=== PATIENT | female | born 1960 | race African-American/Black ===

== ENCOUNTER 2018-06-26 07:00 | Day surgery (SDC) | payer OTHER ==
[2018-06-25 12:17] VITALS: BMI 31.1
[2018-06-26] MEDS ORDERED: oxyCODONE HCL 5 MG TABLET PO PRN ×2 (08:24→09:39)
[2018-06-26] MEDS ORDERED: ONDANSETRON 4 MG/2 ML VIAL IVPUSH PRN ×2 (08:24→09:39)
[2018-06-26] MEDS ORDERED: LACTATED RINGERS SOLUTION 1,000 ML IV SCH (08:30)
[2018-06-26] MEDS ORDERED: MIDAZOLAM HCL 2 MG/2 ML SINGLE DOSE VIAL ONE (09:23)
[2018-06-26] MEDS ORDERED: DEXAMETHASONE SOD PHOSPHATE 4 MG/1 ML VIAL ONE (09:24)
[2018-06-26] MEDS ORDERED: LIDOCAINE HCL/PF 2% SDV 5ML VIAL ONE (09:24)
[2018-06-26] MEDS ORDERED: IBUPROFEN 800 MG/8 ML IJ IVPB PRN (09:39)
[2018-06-26] MEDS ORDERED: IBUPROFEN 600 MG TABLET (FP) PO PRN (09:39)
--- NOTE | 2018-06-26 09:43 | HP ---
History & Physical Update - History History: No Change (Consent signed and witnessed All questions answered) - Physical Physical: No Change - Assessment Assessment: No Change - Plan Plan: No Change
--- NOTE | 2018-06-26 09:43 | OP ---
Operative Note - Note: Operative Date: 06/26/18 Pre-Operative Diagnosis: 57yo P2 with Postmenopausal bleeding, Thick Endometrium on Tamoxifen Operation: Hysteroscopy, Sonographicaly guided myomectomy and polypectomy, scar tissue resection Findings: 1. Long cervix with scared internal os 2. Fibroid 3. Polypoid tissue in the endometrial cavity Post-Operative Diagnosis: Same as Pre-op Surgeon: Lenore Shirley Anesthesiologist/BOX CLOSING MACHINE OPERATOR: [facility] Anesthesia: MAC Specimens Removed: 1. Fibrous and polypoid tissue Estimated Blood Loss (mls): 0 Drains & Tubes with Location: Fluid defficit - 50cc Drains, Volume Out (mls): 50 Fluid Volume Replaced (mls): 700 Operative Report Dictated: Yes
[2018-06-26] MEDS ORDERED: ELECTROLYTE-148 SOLN 1,000 ML IV SCH (09:45)
[2018-06-26] MEDS ORDERED: ePHEDrine SULFATE 50 MG/1 ML AMPULE ONE (10:08)
[2018-06-26] MEDS ORDERED: KETOROLAC TROMETHAMINE 30 MG/1 ML VIAL ONE (10:36)
[2018-06-26] MEDS ORDERED: oxyCODONE HCL 5 MG TABLET ONE (11:56)
[2018-06-26 12:13] VITALS: TEMP 97.7
[2018-06-26 13:22] VITALS: BP 134/76; PULSE 90
--- NOTE | 2018-06-27 08:20 | OP ---
DATE OF OPERATION: 06/26/2018 PREOPERATIVE DIAGNOSIS: A 57-year-old para 2 with postmenopausal bleeding, thick endometrium on tamoxifen. OPERATION: Hysteroscopy, sonographic-guided myomectomy, scar tissue resection, and polypectomy. FINDINGS: Long cervix with scarred internal os, fibroid, and scar tissue blocking the entry into the uterine cavity, polypoid tissue in endometrial cavity. PREOPERATIVE DIAGNOSIS: A 57-year-old para 2 with postmenopausal bleeding, thick endometrium on tamoxifen. SURGEON: Lenore Shirley MD ANESTHESIOLOGIST: Willie Burnette MD and Esau Light CRNA ANESTHESIA: MAC SPECIMENS: Removed fibrous and polypoid tissue. DESCRIPTION OF The OPERATIVE PROCEDURE: After assuring informed consent, patient was brought to the operating room where she was placed in dorsal lithotomy position. Perineum and vagina were prepped and draped in sterile fashion. The Symphion hysteroscope was assembled, primed, wide balanced, and ready to be used. The cervix was visualized by placing Norris retractors into the vagina. Cervix was grasped with single-toothed tenaculum and gradually dilated. However, resistance was met during the dilation, and therefore the Symphion hysteroscope was introduced, and hydrodilatation entry was attempted. However, significant amount of scar and fibrous tissue was found at the top of the resectoscope. The resectoscope device was introduced, and initial attempt was made to resect the blocking internal os tissue, but decision was made in order to avoid perforation, stenographer was requested, and the following procedure was performed under the sonographic guidance. The gauge 19 dilator was introduced into the cavity under sonographic guidance, and uterine cavity was entered atraumatically without perforation. Hysteroscope was reintroduced subsequently and scar tissue blocking the entry into the uterine cavity, and entire internal os was resected. That fibroid-like scar tissue was resected. In the uterine cavity, there was a small amount of polypoid tissue found consistent with tamoxifen administration. That polypoid tissue was resected as well. There was no obvious malignancy on gross inspection. The instruments subsequently were removed from the uterus and cervix. Excellent hemostasis was noted. Sponge stick and instrument count was correct x2. Estimated blood loss was 0. Patient urinated through straight catheter 50 mL at the beginning of the procedure. Fluid deficit was 50 mL as well. Patient received 700 mL of IV fluid. Patient was brought to the recovery room extubated in stable condition. Simi [id number]
--- NOTE | 2018-06-27 15:56 | PATH ---
Surgical Pathology Report Patient Name: MANUEL OSULLIVAN [facility]. Rec. #: [id number] /Age/Gender: 1960 (Age: 57) / F Account: [id number] Location: [facility] Taken: 06/26/2018 Received: 06/26/2018 Reported: 06/27/2018 Physicians: Lenore Shirley M.D. Specimen(s) Received A: ENDOCERVICAL CURETTINGS B: ENDOMETRIAL CURETTINGS, POLYP AND FIBROID TISSUE Clinical History Postmenopausal bleeding Final Diagnosis A. ENDOCERVICAL CURETTINGS, DILATION AND CURETTAGE: FRAGMENTS OF ENDOMETRIAL POLYP, LOWER UTERINE SEGMENT, AND BENIGN CERVICAL TISSUE. B. ENDOMETRIAL CURETTING, POLYP, FIBROID TISSUE, DILATION AND CURETTAGE: FRAGMENTS OF SMOOTH MUSCLE CONSISTENT WITH SUBMUCOSAL LEIOMYOMA, ENDOMETRIAL POLYP, AND BENIGN CERVICAL TISSUE WITH SQUAMOUS METAPLASIA. Electronically Signed Phoebe Dill M.D. Gross Description A. Received in formalin labeled "endocervical curetting," is a 1.0 x 0.9 x 0.2 cm aggregate of patrick-brown soft tissue fragments admixed with blood clot. The formalin is filtered and the specimen is entirely submitted in one cassette. B. Received in formalin labeled "endometrial curetting, polyp and fibroid tissue," is a 2.1 x 1.6 x 0.3 cm aggregate of patrick soft tissue fragments. The formalin is filtered and the specimen is entirely submitted in one cassette. /06/26/2018 [place]06/26/2018
== END 2018-06-26 13:22 | disposition home or self-care (01) ==
LOC: JASU-SURG 07:00
PROVIDERS: ATTEND Obstetrics & Gynecology
PROC: 0UB97ZX Excision of Uterus, Via Natural or Artificial Opening, Diagnostic (ICD-10-PCS; 2018-06-26)
PROC: 0UJD8ZZ Inspection of Uterus and Cervix, Via Natural or Artificial Opening Endoscopic (ICD-10-PCS; 2018-06-26)
PROC: 0UB98ZZ Excision of Uterus, Via Natural or Artificial Opening Endoscopic (ICD-10-PCS; principal; 2018-06-26 08:30)
PROC: 0UN98ZZ Release Uterus, Via Natural or Artificial Opening Endoscopic (ICD-10-PCS; 2018-06-26 08:30)
DX: N95.0 Postmenopausal bleeding (principal); D25.9 Leiomyoma of uterus, unspecified; N85.8 Other specified noninflammatory disorders of uterus; N85.00 Endometrial hyperplasia, unspecified; C50.912 Malignant neoplasm of unspecified site of left female breast; Z79.810 Long term (current) use of selective estrogen receptor modulators (SERMs); N85.6 Intrauterine synechiae
CPT/HCPCS: 76856-TC; 76998-TC; 87086; 88305-TC; 94760

== ENCOUNTER 2018-12-18 06:02 | Day surgery (SDC) | payer OTHER ==
[2018-12-17 13:47] VITALS: BMI 30.2
--- NOTE | 2018-12-18 07:21 | HP ---
History & Physical Update - History History: No Change - Physical Physical: No Change - Assessment Assessment: No Change - Plan Plan: No Change (H&P reviewed and consistent with 12/13/18 H&P consent signed and witnessed)
[2018-12-18] MEDS ORDERED: IBUPROFEN 600 MG TABLET (FP) PO PRN (07:23)
[2018-12-18] MEDS ORDERED: ONDANSETRON 4 MG/2 ML VIAL IVPUSH PRN (07:23)
[2018-12-18] MEDS ORDERED: oxyCODONE HCL 5 MG TABLET PO PRN (07:23)
[2018-12-18] MEDS ORDERED: IBUPROFEN 800 MG/8 ML IJ IVPB PRN (07:23)
--- NOTE | 2018-12-18 07:24 | OP ---
Operative Note - Note: Operative Date: 12/18/18 Pre-Operative Diagnosis: 58yo P2 with Breast CA on Tamoxifen and Post Menopausal bleeding Operation: Hysteroscopy, polypectomy, D&C Findings: Mild overgrowth of the endometrium, small polyps Post-Operative Diagnosis: Same as Pre-op Surgeon: Lenore Shirley Anesthesiologist/LOOM MECHANIC: Loco Burns Anesthesia: MAC Specimens Removed: Polyps and endometrial curettings Estimated Blood Loss (mls): 0 Drains & Tubes with Location: Fluid deficit 0cc Drains, Volume Out (mls): 20 Fluid Volume Replaced (mls): 400 Operative Report Dictated: Yes
[2018-12-18] MEDS ORDERED: ELECTROLYTE-148 SOLN 1,000 ML IV SCH (07:30)
[2018-12-18] MEDS ORDERED: PROPOFOL 20 ML ONE ×2 (07:38→07:46)
[2018-12-18] MEDS ORDERED: MIDAZOLAM HCL 2 MG/2 ML SINGLE DOSE VIAL ONE (07:38)
[2018-12-18] MEDS ORDERED: DEXAMETHASONE SOD PHOSPHATE 4 MG/1 ML VIAL ONE (07:41)
[2018-12-18] MEDS ORDERED: SUCCINYLCHOLINE CHLORIDE 200 MG/10 ML VIAL ONE (07:46)
[2018-12-18] MEDS ORDERED: ALBUTEROL SO4 0.083% IH SOL 2.5 MG/3 ML VIAL.NEB. NEB ONE ×2 (08:29→10:03)
[2018-12-18] MEDS ORDERED: LACTATED RINGERS SOLUTION 1,000 ML IV SCH (10:15)
[2018-12-18] MEDS ORDERED: IBUPROFEN 600 MG TABLET (FP) PO ONE ×2 (10:17→10:20)
[2018-12-18 10:52] VITALS: BP 135/71; PULSE 100; TEMP 98
--- NOTE | 2018-12-18 21:11 | OP ---
DATE OF OPERATION: 12/18/2018 PREOPERATIVE DIAGNOSIS: A 58-year-old, para 2, with breast cancer, on tamoxifen, and postmenopausal bleeding. OPERATION: Hysteroscopy, polypectomy, dilation and curettage. FINDINGS: Mild overgrowth of endometrium, small endometrial polyps. POSTOPERATIVE DIAGNOSIS: A 58-year-old, para 2, with breast cancer, on tamoxifen, and postmenopausal bleeding. SURGEON: Lenore Shirley MD ANESTHESIA: Benigno Burns MD: MAC. SPECIMENS REMOVED: Polyps and endometrial curettings. DESCRIPTION OF THE OPERATIVE PROCEDURE: After assuring informed consent, patient was brought to the operating room, where she was placed in dorsal lithotomy position. Vagina and perineum was prepped and draped with Betadine and draped in sterile fashion. The Symphion hysteroscope was assembled, primed and wide balanced in preparation for use. Norris retractors were placed into the vagina to allow visualization of the cervix. Anterior cervical lip was articulated with single-tooth tenaculum. Cervix was dilated, with gradually increasing in size Dean dilators to allow accommodation of 6.3-mm hysteroscope. Hysteroscope was introduced through the cervix atraumatically. Inspection of the uterine cavity was made, with above findings. The resectoscope device was placed through the hysteroscopic port and all endometrial contents were shaved. Subsequently, excellent hemostasis was noted. All instruments were removed from cervix, uterus, and vagina. Instrument count was correct x2. Estimated blood loss was zero. Fluid deficit was zero. Urine 20 mL was drained during the procedure and the patient received 400 mL of IV fluids. She tolerated procedure well and was brought to the recovery room in stable condition. Instrument and sponge count was correct x2. Simi [id number]
--- NOTE | 2018-12-19 15:52 | PATH ---
Surgical Pathology Report Patient Name: MANUEL OSULLIVAN [facility]. Rec. #: [id number] /Age/Gender: 1960 (Age: 58) / F Account: [id number] Location: [facility] Taken: 12/18/2018 Received: 12/18/2018 Reported: 12/19/2018 Physicians: Lenore Shirley M.D. Specimen(s) Received ENDOMETRIAL CURETTINGS AND POLYP Clinical History Postmenopausal bleeding Final Diagnosis ENDOMETRIAL POLYP AND CURETTINGS, POLYPECTOMY, DILATION AND CURETTAGE: BROAD BUNDLES OF SMOOTH MUSCLE CONSISTENT WITH LEIOMYOMA, SCANT WEAKLY PROLIFERATIVE ENDOMETRIUM, SCANT ENDOCERVICAL EPITHELIUM, AND BENIGN CERVICAL SQUAMOUS MUCOSA. Electronically Signed Phoebe Dill M.D. Gross Description Received in formalin labeled "endometrial polyp and curettings," is a 2.5 x 2.0 x 0.3 cm aggregate of patrick soft tissue fragments. The formalin is filtered and the specimen is entirely submitted in one cassette. /12/18/2018 [facility]12/18/2018
== END 2018-12-18 11:00 | disposition home or self-care (01) ==
LOC: JASU-SURG 06:02
PROVIDERS: ATTEND Obstetrics & Gynecology
PROC: 0UJD8ZZ Inspection of Uterus and Cervix, Via Natural or Artificial Opening Endoscopic (ICD-10-PCS; 2018-12-18)
PROC: 0UB97ZX Excision of Uterus, Via Natural or Artificial Opening, Diagnostic (ICD-10-PCS; principal; 2018-12-18 07:30)
PROC: 0UDB7ZX Extraction of Endometrium, Via Natural or Artificial Opening, Diagnostic (ICD-10-PCS; 2018-12-18 07:30)
DX: N95.0 Postmenopausal bleeding (principal); C50.919 Malignant neoplasm of unspecified site of unspecified female breast; N84.0 Polyp of corpus uteri
CPT/HCPCS: 88305-TC; 94760

== ENCOUNTER 2020-06-25 11:23 | Emergency (ER) | payer OTHER ==
[2020-06-25 11:35] VITALS: BP 137/76; PULSE 96; TEMP 98.4; BMI 33.8
[2020-06-25] MEDS ORDERED: KETOROLAC TROMETHAMINE 30 MG/1 ML VIAL IM ONE (11:46)
[2020-06-25] MEDS ORDERED: KETOROLAC TROMETHAMINE 30 MG/1 ML VIAL ONE (11:51)
--- NOTE | 2020-06-25 11:59 | PDOC ---
History of Present Illness - General Chief Complaint: Pain, Acute Stated Complaint: L/FOOT PROBLEM Time Seen by Provider: 06/25/20 11:31 History Source: Patient Exam Limitations: No Limitations - History of Present Illness Initial Comments: 06/25/20 11:55 Patient is a 59-year-old female with a history of hypertension who presents to the ED with left anterior ankle pain that she has had since yesterday. She states she has bilateral knee arthritis and has gotten multiple bilateral knee injections in the past. She states yesterday she did a lot with her mother and her left anterior ankle began to hurt. She denies any fall or injury. She states the pain became so severe that she began to work with a cane again. She denies any numbness or tingling. She has taken meloxicam yesterday with little relief. She has not taken anything today. Past History - Medical History Allergies/Adverse Reactions: Allergies Allergy/AdvReac Type Severity Reaction Status Date / Time No Known Allergies Allergy Verified 12/17/18 14:41 Home Medications: Ambulatory Orders Losartan Potassium 100 mg PO DAILY 08/23/14 Amlodipine Besylate [Norvasc -] 5 mg PO DAILY 06/25/18 Tamoxifen Citrate 5 mg PO HS 06/25/18 Anemia: No Asthma: No Cancer: Yes (lt. breast CA 2015) Cardiac Disorders: No CVA: No COPD: No CHF: No Dementia: No Diabetes: No GI Disorders: No Disorders: No HTN: Yes Hypercholesterolemia: No Liver Disease: No Seizures: No Thyroid Disease: No Other medical history: Arthritis - Reproductive History Is Patient Now?: No - Immunization History Immunization Up to Date: Yes - Psycho-Social/Smoking History Smoking History: Current every day smoker Have you smoked in the past 12 months: Yes Number of Cigarettes Smoked Daily: 4 Information on smoking cessation initiated: No - Substance Abuse Hx (Audit-C & DAST Scrn) How often the patient has a drink containing alcohol: Never Score: In Men: 4 or > Positive; In Women: 3 or > Positive: 0 Screen Result (Pos requires Nsg. Audit-10AR): Negative In the last yr the pt used illegal drug/Rx for NonMed reason: No Score: Yes response is considered Positive: 0 Screen Result (Positive result requires Nsg. DAST-10): Negative Review of Systems - Review of Systems Comments:: 06/25/20 11:56 - Review of Systems Able to Perform ROS?: Yes Constitutional: No: Fever, Chills, Loss of Appetite, Night Sweats, Weakness HEENTM: No: Eye Pain, Vision changes, Ear Pain, Throat Pain, Throat Swelling, Mouth Pain, Difficulty Swallowing Respiratory: No: Cough, Shortness of Breath, Wheezing, Sputum Production Cardiac (ROS): No: Chest Pain, Chest Tightness, Palpitations, Irregular Heart Beat, Edema ABD/GI: No: Nausea, Vomiting, Abdominal Pain, Diarrhea : No Dysuria, No Hematuria, No Frequency, No Urgency Musculoskeletal: No: Muscle Pain, Back Pain, Muscle Weakness, Neck Pain; positive: Left anterior ankle pain Integumentary: No: Lesions, Rash Neurological: No: Headache, Numbness, Tingling, Weakness, Speech Difficulties *Physical Exam - Vital Signs Last Vital Signs Temp Pulse Resp BP Pulse Ox 98.4 F 96 H 16 137/76 99 06/25/20 11:27 06/25/20 11:27 06/25/20 11:27 06/25/20 11:27 06/25/20 11:27 - Physical Exam 06/25/20 11:57 - Physical Exam General Appearance: Nourished, Appropriately Dressed, No Distress HEENT: EOMI, Normal Voice, Hearing Grossly Normal Neck: Supple, No Lymphadenopathy (R), No Lymphadenopathy (L), No Rigidity, No Decreased range of motion Respiratory/Chest: Lungs Clear, Normal Breath Sounds. No Respiratory Distress, No Accessory Muscle Use Cardiovascular: Regular Rhythm, Regular Rate, S1, S2 Musculoskeletal: Normal Inspection. No Decreased Range of Motion; left anterior ankle tenderness to palpation in the mortise. No decreased range of motion appreciated. No medial or lateral ankle tenderness palpation. Patient able to move all toes freely. Brisk capillary refill distally. Sensation intact distally. Walking with an antalgic gait. Extremity: Normal Capillary Refill, Normal Inspection Integumentary: Normal Color, Dry. No Rash Neurologic: outsewer II-XII NML intact, Fully Oriented, Alert, Normal Mood/Affect, Normal Response ED Treatment Course - RADIOLOGY Radiology Studies Ordered: Category Date Time Status ANKLE & FOOT-LEFT* [RAD] Stat Radiology 06/25/20 11:46 Ordered Medical Decision Making - Medical Decision Making 06/25/20 11:59 Assessment: Patient is a 59-year-old female with left anterior ankle pain, nontraumatic. Plan: -Left foot and ankle x-ray ordered -Toradol ordered -Will reassess 06/25/20 12:34 The patient has been made aware that her foot xray shows some arthritic changes but no acute process. She can continue to take her at home Meloxicam. She will be referred to ortho for further evaluation and treatment. She understands and agrees with this treatment and plan. Discharge - Discharge Information Problems reviewed: Yes Clinical Impression/Diagnosis: Left foot pain Left ankle pain Qualifiers: Chronicity: acute Qualified Code(s): M25.572 - Pain in left ankle and joints of left foot Condition: Stable Disposition: HOME - Follow up/Referral Referrals: Yulia Landon [Primary Care Provider] - Anand Shane MD [Staff Physician] - - Patient Discharge Instructions Patient Printed Discharge Instructions: DI for Ankle Pain, DI for Foot Pain Additional Instructions: Ice and elevate your foot. Take meloxicam as previously prescribed as this will likely help your foot pain. Follow-up with orthopedics, referral given, for further evaluation and treatment. You can continue your activity as tolerated. - Post Discharge Activity Work/Back to School Note: Back to Work
== END 2020-06-25 12:49 | disposition home or self-care (01) ==
LOC: JERFT 11:23
PROC: 3E0233Z Introduction of Anti-inflammatory into Muscle, Percutaneous Approach (ICD-10-PCS; principal; 2020-06-25)
DX: M25.572 Pain in left ankle and joints of left foot (principal)
CPT/HCPCS: 73610-TC-LT-FY; 73630-TC-LT; 99284-25

== ENCOUNTER 2021-05-11 09:33 | Emergency (ER) | payer OTHER ==
[2021-05-11 09:50] VITALS: BP 110/73; PULSE 108; TEMP 97.5; BMI 35.4
[2021-05-11] MEDS ORDERED: KETOROLAC TROMETHAMINE 60 MG/2 ML VIAL IM ONE (10:05)
[2021-05-11] MEDS ORDERED: KETOROLAC TROMETHAMINE 30 MG/1 ML VIAL ONE (10:15)
== END 2021-05-11 10:30 | disposition home or self-care (01) ==
LOC: JER 09:33 → JERFT 09:33
PROC: 3E0233Z Introduction of Anti-inflammatory into Muscle, Percutaneous Approach (ICD-10-PCS; principal; 2021-05-11)
DX: M25.561 Pain in right knee (principal)
CPT/HCPCS: 99284-25

== ENCOUNTER 2021-08-19 15:00 | Emergency (ER) | payer OTHER ==
[2021-08-19 15:15] VITALS: TEMP 98; BMI 34.7
[2021-08-19] MEDS ORDERED: ACETAMINOPHEN 1000 MG/100 ML VIAL IVPB ONE (16:07)
[2021-08-19] MEDS ORDERED: LACTATED RINGERS SOLUTION 1,000 ML/1,000 ML INFUS.BAG IV SCH (16:15)
[2021-08-19] MEDS ORDERED: FAMOTIDINE 20 MG/50 ML IVPB 20 MG/50 ML MG IVPB ONE ×2 (16:39→17:19)
[2021-08-19] MEDS ORDERED: MAG HYDROX/AL HYDROX/SIMETH 30 ML UNIT-DOSE CUP PO ONE (16:39)
[2021-08-19] MEDS ORDERED: ONDANSETRON 4 MG/2 ML VIAL IVPUSH ONE (16:41)
[2021-08-19] MEDS ORDERED: ACETAMINOPHEN INJECTION 100 ML IVPB ONE (17:19)
[2021-08-19] MEDS ORDERED: ONDANSETRON 4 MG/2 ML VIAL ONE (17:19)
[2021-08-19] MEDS ORDERED: MAG HYDROX/AL HYDROX/SIMETH 30 ML UNIT-DOSE CUP ONE ×2 (17:19→19:13)
[2021-08-19 18:25] LABS: BASO % 0.4 % (0-2.0); EOS % 0.1 % (0-4.5); HEMATOCRIT 42.4 % (32.4-45.2); HEMOGLOBIN 14.1 GM/dL (10.7-15.3); MCH 29.4 pg (25.7-33.7); MCHC 33.3 g/dl (32.0-36.0); MEAN CELL VOLUME 88.1 fl (80-96); MONO % 7.2 % (3.8-10.2); NEUT % 82.3 % (42.8-82.8); PLATELET COUNT 368 10^3/uL (134-434); RBC 4.81 M/mm3 (3.60-5.2); RDW 16.6 % (11.6-15.6); WHITE BLOOD COUNT 12.2 K/mm3 (4.0-10.0)
[2021-08-19 18:30] LABS: CHLORIDE 104 mmol/L (98-107); SODIUM 137 mmol/L (136-145)
[2021-08-19 18:32] LABS: ALBUMIN 3.5 g/dl (3.4-5.0)
[2021-08-19 18:33] LABS: ANION GAP 6 MMOL/L (8-16); BLOOD UREA NITROGEN 13.1 mg/dL (7-18); CO2 27 mmol/L (21-32); GLUCOSE,RANDOM 120 mg/dL (74-106); LIPASE 68 U/L (73-393); MAGNESIUM 2.3 mg/dL (1.8-2.4)
[2021-08-19 18:35] LABS: SGOT/AST 18 U/L (15-37); SGPT/ALT 19 U/L (13-61)
[2021-08-19 18:36] LABS: CREATININE 0.6 mg/dL (0.55-1.3)
[2021-08-19 18:37] LABS: BILIRUBIN,TOTAL 0.4 mg/dL (0.2-1); TOT PROT 7.8 g/dl (6.4-8.2)
[2021-08-19 18:38] LABS: ALK PHOS 142 U/L (45-117)
[2021-08-19 18:53] LABS: URINE APPEARANCE CLEAR; URINE BILIRUBIN NEGATIVE (NEGATIVE); URINE COLOR YELLOW; URINE GLUCOSE (UA) NEGATIVE (NEGATIVE); URINE KETONE 40 mg/dl (NEGATIVE)
[2021-08-19 18:54] LABS: PH,URINE 6.5 (5.0-8.0); URINE LEUK ESTERASE NEGATIVE (NEGATIVE); URINE NITRITE NEGATIVE (NEGATIVE); URINE PROTEIN 30 (NEGATIVE)
[2021-08-19 19:29] VITALS: BP 131/67; PULSE 100
== END 2021-08-19 19:29 | disposition home or self-care (01) ==
LOC: JER 15:00
PROC: 3E033NZ Introduction of Analgesics, Hypnotics, Sedatives into Peripheral Vein, Percutaneous Approach (ICD-10-PCS; principal; 2021-08-19)
PROC: 3E033GC Introduction of Other Therapeutic Substance into Peripheral Vein, Percutaneous Approach (ICD-10-PCS; 2021-08-19)
PROC: 3E033GC Introduction of Other Therapeutic Substance into Peripheral Vein, Percutaneous Approach (ICD-10-PCS; 2021-08-19)
DX: R11.2 Nausea with vomiting, unspecified (principal)
CPT/HCPCS: 36415; 71046-TC-FY; 74018-TC-FY; 76705-TC; 80053; 81003; 82550; 83690; 83735; 84484; 85025; 87086; 93005; 93010; 99285-25; J0131

== ENCOUNTER 2022-02-26 08:17 | Emergency (ER) | payer OTHER ==
[2022-02-26 08:31] VITALS: BP 134/83; PULSE 98; TEMP 98.2; BMI 31.2
[2022-02-26 10:03] LABS: BASO % 0.1 % (0-2.0); EOS % 0.2 % (0-4.5); HEMATOCRIT 37.5 % (32.4-45.2); HEMOGLOBIN 12.9 GM/dL (10.7-15.3); LYMPH % 11.6 % (8-40); MCH 30.1 pg (25.7-33.7); MCHC 34.4 g/dl (32.0-36.0); MEAN CELL VOLUME 87.5 fl (80-96); MONO % 9.2 % (3.8-10.2); NEUT % 78.9 % (42.8-82.8); PLATELET COUNT 421 10^3/uL (134-434); RBC 4.29 M/mm3 (3.60-5.2); RDW 15.2 % (11.6-15.6); WHITE BLOOD COUNT 9.9 K/mm3 (4.0-10.0)
[2022-02-26 10:09] LABS: EPI CELLS 15 /uL (0-25.1); HYALINE CASTS 2 /uL (0-3.1); URINE APPEARANCE CLOUDY; URINE BACTERIA 40 /uL (0-1359); URINE BILIRUBIN NEGATIVE (NEGATIVE); URINE COLOR ORANGE; URINE GLUCOSE (UA) NEGATIVE (NEGATIVE); URINE KETONE NEGATIVE (NEGATIVE); URINE LEUK ESTERASE TRACE (NEGATIVE); URINE NITRITE NEGATIVE (NEGATIVE); URINE PROTEIN 1+ (NEGATIVE); URINE RBC 6712 /uL (0-23.9); URINE WBC 47 /uL (0-25.8)
[2022-02-26 10:29] LABS: BLOOD UREA NITROGEN 16.8 mg/dL (7-18); CALCIUM 9.3 mg/dL (8.5-10.1)
[2022-02-26 10:32] LABS: CREATININE 0.8 mg/dL (0.55-1.3)
[2022-02-26 10:34] LABS: BILIRUBIN,TOTAL 0.3 mg/dL (0.2-1); TOT PROT 7.4 g/dl (6.4-8.2)
[2022-02-26] MEDS ORDERED: KETOROLAC TROMETHAMINE 30 MG/1 ML VIAL IM ONE (10:44)
[2022-02-26] MEDS ORDERED: KETOROLAC TROMETHAMINE 30 MG/1 ML VIAL IVPUSH ONE (11:17)
[2022-02-26] MEDS ORDERED: KETOROLAC TROMETHAMINE 30 MG/1 ML VIAL ONE (11:18)
== END 2022-02-26 11:41 | disposition home or self-care (01) ==
LOC: JER 08:17
PROC: 3E0333Z Introduction of Anti-inflammatory into Peripheral Vein, Percutaneous Approach (ICD-10-PCS; principal; 2022-02-26)
PROC: 3E0233Z Introduction of Anti-inflammatory into Muscle, Percutaneous Approach (ICD-10-PCS; 2022-02-26)
DX: N30.01 Acute cystitis with hematuria (principal)
CPT/HCPCS: 36415; 80053; 81003; 85025; 87086; 99285-25

== ENCOUNTER 2022-04-14 10:00 | Emergency (ER) | payer OTHER ==
[2022-04-14 10:09] VITALS: BP 143/88; TEMP 97.8; BMI 31.4
[2022-04-14] MEDS ORDERED: KETOROLAC TROMETHAMINE 30 MG/1 ML VIAL IM ONE (11:06)
[2022-04-14] MEDS ORDERED: KETOROLAC TROMETHAMINE 30 MG/1 ML VIAL ONE (11:06)
[2022-04-14 13:08] VITALS: PULSE 93
== END 2022-04-14 13:08 | disposition home or self-care (01) ==
LOC: JERFT 10:00
PROC: 3E0233Z Introduction of Anti-inflammatory into Muscle, Percutaneous Approach (ICD-10-PCS; principal; 2022-04-14)
DX: M25.561 Pain in right knee (principal)
CPT/HCPCS: 73562-TC-RT-FY; 93971-TC; 99284-25

== ENCOUNTER 2022-08-28 11:44 | Emergency (ER) | payer OTHER ==
[2022-08-28 11:48] VITALS: BP 144/82; PULSE 114; RESP 18; TEMP 98; BMI 32.9
[2022-08-28] MEDS ORDERED: KETOROLAC TROMETHAMINE 30 MG/1 ML VIAL IM ONE (12:30)
[2022-08-28] MEDS ORDERED: KETOROLAC TROMETHAMINE 30 MG/1 ML VIAL ONE (12:31)
== END 2022-08-28 12:42 | disposition home or self-care (01) ==
LOC: JER 11:44 → JERFT 11:44
PROC: 3E0233Z Introduction of Anti-inflammatory into Muscle, Percutaneous Approach (ICD-10-PCS; principal; 2022-08-28)
DX: M19.90 Unspecified osteoarthritis, unspecified site (principal)
CPT/HCPCS: 73562-TC-RT-FY; 99284-25

== ENCOUNTER 2022-12-01 06:50 | Emergency (ER) | payer OTHER ==
[2022-12-01 07:09] VITALS: BMI 38.4
[2022-12-01] MEDS ORDERED: ACETAMINOPHEN 1000 MG/100 ML BAG IVPB ONE (08:01)
[2022-12-01 08:51] LABS: BASO % 0.8 % (0-2.0); EOS % 0.9 % (0-4.5); HEMATOCRIT 37.4 % (32.4-45.2); HEMOGLOBIN 12.8 GM/dL (10.7-15.3); LYMPH % 17.4 % (8-40); MCH 30.6 pg (25.7-33.7); MCHC 34.1 g/dl (32.0-36.0); MEAN CELL VOLUME 89.7 fl (80-96); MONO % 6.4 % (3.8-10.2); NEUT % 74.5 % (42.8-82.8); PLATELET COUNT 466 10^3/uL (134-434); RBC 4.17 M/mm3 (3.60-5.2); RDW 16.5 % (11.6-15.6)
[2022-12-01 08:57] LABS: INR 1.16 (0.83-1.09); PROTHROMBIN TIME (PATIENT) 13.4 SEC (9.7-13.0)
[2022-12-01 09:00] LABS: ACTIVATED PTT 32.4 SECONDS (25.2-36.5)
[2022-12-01 09:18] LABS: BLOOD UREA NITROGEN 11.8 mg/dL (7-18); CALCIUM 8.9 mg/dL (8.5-10.1)
[2022-12-01 09:21] LABS: CREATININE 0.7 mg/dL (0.55-1.3)
[2022-12-01 09:23] LABS: BILIRUBIN,TOTAL 0.3 mg/dL (0.2-1)
[2022-12-01 09:26] LABS: N-TERMINAL BNP 67.2 pg/ml (5-125)
[2022-12-01 09:49] VITALS: BP 139/78; PULSE 103; RESP 20; TEMP 97.8
== END 2022-12-01 10:57 | disposition home or self-care (01) ==
LOC: JER 06:50
DX: M25.571 Pain in right ankle and joints of right foot (principal); M25.572 Pain in left ankle and joints of left foot
CPT/HCPCS: 0241U-QW; 36415; 80053; 83880; 84484; 85025; 85610; 85730; 93005; 93010; 99284-25

== ENCOUNTER 2024-01-02 16:51 | Emergency (ER) | payer OTHER ==
[2024-01-02 17:03] VITALS: BP 139/75; PULSE 92; RESP 16; TEMP 98.2; BMI 35.6
== END 2024-01-02 18:33 | disposition home or self-care (01) ==
LOC: JER 16:51
DX: R22.0 Localized swelling, mass and lump, head (principal); L29.9 Pruritus, unspecified; T49.4X5A Adverse effect of keratolytics, keratoplastics, and other hair treatment drugs and preparations, initial encounter
CPT/HCPCS: 99283-25

== ENCOUNTER 2024-01-03 17:32 | Emergency (ER) | payer OTHER ==
[2024-01-03 17:40] VITALS: BP 149/68; PULSE 97; RESP 18; TEMP 99; BMI 35.6
[2024-01-03] MEDS ORDERED: AMOX TR/POT CLAV 875MG/125MG TABLETS (FP) ONE (18:32)
[2024-01-03] MEDS ORDERED: DEXAMETHASONE SOD PHOSPHATE 10 MG/1 ML VIAL ONE (18:33)
[2024-01-03] MEDS: AMOX TR/POT CLAV 875MG/125MG TABLETS (FP) PO ONE (18:41)
[2024-01-03] MEDS: DEXAMETHASONE SOD PHOSPHATE 10 MG/1 ML VIAL IM ONE (18:41)
== END 2024-01-03 18:49 | disposition home or self-care (01) ==
LOC: JERFT 17:32 → JER 17:32 → JERFT 18:49
PROC: 3E023GC Introduction of Other Therapeutic Substance into Muscle, Percutaneous Approach (ICD-10-PCS; principal; 2024-01-03)
DX: H01.9 Unspecified inflammation of eyelid (principal); L03.213 Periorbital cellulitis
CPT/HCPCS: 99284-25; J1100